=== PATIENT | male | born 1965 | race Caucasian/White ===

== ENCOUNTER 2017-01-30 20:29 | Emergency (ER) | payer OTHER ==
[2017-01-30 20:42] VITALS: BP 118/78
--- NOTE | 2017-01-30 20:51 | UC ---
Hand/Wrist HPI - HPI Summary HPI Summary: complaint of left wrist pain that started 2 weeks ago was working with his hand and felt his wrist pop then while he was working he hit himself in the hand with a hammer pain is constant and has worsened today pain radiates from wrist into thumb movement increases pain resting reduces pain hasn't taken any medications for pain - History Of Current Complaint Chief Complaint: UCUpperExtremity Stated Complaint: LEFT WRIST PAIN Time Seen by Provider: 01/30/17 20:44 Hx Obtained From: Patient - Allergies/Home Medications Allergies/Adverse Reactions: Allergies Allergy/AdvReac Type Severity Reaction Status Date / Time antibiotic eye drop Allergy Swelling Uncoded 01/30/17 20:42 Home Medications: Home Medications NK [No Home Medications Reported] 01/30/17 [History Confirmed 01/30/17] PMH/Surg Hx/FS Hx/Imm Hx Previously Healthy: Yes - Surgical History Surgical History: Yes Surgery Procedure, Year, and Place: cardiac cath 03/2012 wnl per pt, L knee - Family History Known Family History: Negative: Cardiac Disease, Hypertension, Diabetes - Social History Occupation: Employed Full-time Lives: With Family Alcohol Use: None Alcohol Amount: quit 5 years ago Substance Use Type: None Smoking Status (MU): Never Smoked Tobacco Type: Cigarettes Household Exposure Type: Cigarettes - Immunization History Most Recent Influenza Vaccination: no Most Recent Tetanus Shot: 02/2014 Review of Systems Constitutional: Negative Skin: Negative Eyes: Negative ENT: Negative Respiratory: Negative Cardiovascular: Negative Gastrointestinal: Negative Genitourinary: Negative Motor: Negative Neurovascular: Negative Musculoskeletal: Other: - left hand and wrist pain Neurological: Negative Psychological: Negative All Other Systems Reviewed And Are Negative: Yes Physical Exam Triage Information Reviewed: Yes Appearance: No Pain Distress, Well-Nourished Vital Signs: Initial Vital Signs Temp 99.1 F 01/30/17 20:32 Pulse 85 01/30/17 20:32 Resp 18 01/30/17 20:32 BP 118/78 01/30/17 20:32 Vital Signs Reviewed: Yes Eyes: Positive: Conjunctiva Clear ENT: Positive: Pharynx normal, TMs normal Neck: Positive: No Lymphadenopathy Respiratory: Positive: Lungs clear, Normal breath sounds, No respiratory distress, No accessory muscle use Cardiovascular: Positive: RRR, No Murmur, Pulses Normal Abdominal Exam: Normal Musculoskeletal: Positive: Other: - LUE- tenderness in 2nd metacarpal, anatomical snuff box tenderness; Full ROM in DIP, PIP, MCP, & carpal joints & with supination and pronation. Neurological: Positive: Alert Psychological Exam: Normal Skin Exam: Normal Hand/Wrist Course/Dx - Course Course Of Treatment: wrist x-ray shows no fracture. d/t schaphoid tenderness will send to ortho for further evaluation and treatment - Differential Dx/Diagnosis Differential Diagnosis/HQI/PQRI: Fracture, Sprain, Strain Provider Diagnoses: left wrist fracture Discharge - Discharge Plan Condition: Stable Disposition: HOME Patient Education Materials: Wrist Fracture in Adults (ED) Referrals: KATHIA Sam [Medical Doctor] - Haim Orozco MD [Medical Doctor] - Additional Instructions: Please call claim benefit specialist for an appointment. They will evaluate and determine your treatment. It is important to wear splint until you are seen by orthopedics. Take ibuprofen or aleve to control pain and reduce inflammation. Please review your discharge instructions. If your symptoms worsen call claim benefit specialist or return to urgent care.
[2017-01-30] MEDS ORDERED: Ibuprofen TAB* 400 MG PO ONE (20:52)
--- NOTE | 2017-01-30 21:15 | RAD ---
INDICATION: Atraumatic pain base of thumb for 2 weeks COMPARISON: None TECHNIQUE: AP, lateral, navicular and oblique views were obtained. FINDINGS: The bony structures, joint spaces, and soft tissues are normal for age. IMPRESSION: NO ACUTE FRACTURE. IF THERE IS PERSISTENT PAIN SUGGEST FOLLOW-UP IN 7-10 DAYS.
== END 2017-01-30 21:45 | disposition home or self-care (01) ==
LOC: UCCORT 20:29
DX: S69.92XA Unspecified injury of left wrist, hand and finger(s), initial encounter (principal); W22.8XXA Striking against or struck by other objects, initial encounter; Y93.89 Activity, other specified; Y92.9 Unspecified place or not applicable; Y99.0 Civilian activity done for income or pay; Z77.22 Contact with and (suspected) exposure to environmental tobacco smoke (acute) (chronic)
CPT/HCPCS: 99213; A9270-GY; G0463

== ENCOUNTER 2017-03-17 07:17 | Emergency (ER) | payer OTHER ==
[2017-03-17 07:32] VITALS: BP 116/81
--- NOTE | 2017-03-17 08:04 | UC ---
Skin Complaint HPI - HPI Summary HPI Summary: painful rash x 5 days located on lower abdominal wall, back, face and neck + exposure to poison gayatri - History of Current Complaint Chief Complaint: UCRash Time Seen by Provider: 03/17/17 07:55 Stated Complaint: SKIN COMPLAINT Hx Obtained From: Patient Onset/Duration: Gradual Onset, Lasting Days - 5, Still Present Timing: Constant Onset Severity: Moderate Current Severity: Moderate Location: Diffuse Character: Swelling, Pruritus, Pain, Redness, Raised, Painful Aggravating: Touch Alleviating: Nothing Associated Signs & Symptoms: Positive: Rash. Negative: Fever, Chills, Cough, Wheezing, Chest Pain, Throat Tightening - Allergy/Home Medications Allergies/Adverse Reactions: Allergies Allergy/AdvReac Type Severity Reaction Status Date / Time antibiotic eye drop Allergy Swelling Uncoded 03/17/17 07:32 Home Medications: Home Medications Cortisone 10 Topical 1 applic TOPICAL QID PRN 03/17/17 [History] Review of Systems Constitutional: Negative Skin: Rash Eyes: Negative ENT: Negative Respiratory: Negative Is Patient Immunocompromised?: No All Other Systems Reviewed And Are Negative: Yes PMH/Surg Hx/FS Hx/Imm Hx Previously Healthy: Yes - Surgical History Surgical History: Yes Surgery Procedure, Year, and Place: cardiac cath 03/2012 wnl per pt, b/l knees - Family History Known Family History: Negative: Cardiac Disease, Hypertension, Diabetes - Social History Alcohol Use: None Alcohol Amount: quit 5 years ago Substance Use Type: None Smoking Status (MU): Never Smoked Tobacco Type: Cigarettes Household Exposure Type: Cigarettes - Immunization History Most Recent Influenza Vaccination: no Most Recent Tetanus Shot: 02/2014 Physical Exam Triage Information Reviewed: Yes Appearance: Well-Appearing, No Pain Distress, Well-Nourished Vital Signs: Initial Vital Signs Temp 97.5 F 03/17/17 07:25 Pulse 77 03/17/17 07:25 Resp 18 03/17/17 07:25 BP 116/81 03/17/17 07:25 Vital Signs Reviewed: Yes Eyes: Positive: Conjunctiva Clear ENT: Positive: Normal ENT inspection, Hearing grossly normal, Pharynx normal Neck exam: Normal Neck: Positive: Supple, Nontender Respiratory: Positive: Chest non-tender, Lungs clear, Normal breath sounds Cardiovascular: Positive: RRR, No Murmur, Pulses Normal Skin: Positive: rashes - multiple maculopapulary rash on the face, lower abd, back and right arm Course/Dx - Diagnoses Provider Diagnoses: poison gayatri Discharge - Discharge Plan Condition: Stable Disposition: HOME Prescriptions: Triamcinolone 0.1% CREAM(NF) [Kenalog Cream 0.1%(NF)] 1 applic TOPICAL BID #30 gm predniSONE TAB* [Deltasone TAB*] 40 mg PO DAILY #10 tab Patient Education Materials: Poison Gayatri (ED) Referrals: Kandace Luna MD [Primary Care Provider] - If Needed
== END 2017-03-17 08:11 | disposition home or self-care (01) ==
LOC: UCCORT 07:17
DX: L23.7 Allergic contact dermatitis due to plants, except food (principal); Z77.22 Contact with and (suspected) exposure to environmental tobacco smoke (acute) (chronic)
CPT/HCPCS: 99212; G0463

== ENCOUNTER 2018-03-11 16:52 | Emergency (ER) | payer OTHER ==
[2018-03-11 18:30] VITALS: BP 128/72
--- NOTE | 2018-03-11 19:07 | UC ---
Skin Complaint HPI - HPI Summary HPI Summary: Patient states that he fell and scraped his left elbow 2 weeks ago causing an abrasion. He notes that the area healed. About 2-3 days ago he fell and pulled off a small piece of scab. He been applying some Neosporin and states that it healed up pretty good; however, he has since developed some intensive itching and a little bit of redness at the site. He denies any associated joint pain, fever and foreign body sensation. He states his tetanus shot is up to date-within 10 years. - History of Current Complaint Chief Complaint: UCSkin Time Seen by Provider: 03/11/18 19:00 Stated Complaint: LEFT ELBOW WOUND Hx Obtained From: Patient Pain Intensity: 0 Aggravating Factor(s): Nothing Alleviating Factor(s): Nothing Associated Signs & Symptoms: Positive: Rash. Negative: Red Streaks, Joint Swelling - Allergy/Home Medications Allergies/Adverse Reactions: Allergies Allergy/AdvReac Type Severity Reaction Status Date / Time antibiotic eye drop Allergy Swelling Uncoded 03/11/18 18:31 Review of Systems Constitutional: Negative Skin: Rash Eyes: Negative ENT: Negative Respiratory: Negative Cardiovascular: Negative Gastrointestinal: Negative Genitourinary: Negative Motor: Negative Neurovascular: Negative Musculoskeletal: Negative Neurological: Negative Psychological: Negative Is Patient Immunocompromised?: No All Other Systems Reviewed And Are Negative: Yes PMH/Surg Hx/FS Hx/Imm Hx Previously Healthy: Yes - Surgical History Surgical History: Yes Surgery Procedure, Year, and Place: cardiac cath 03/2012 wnl per pt, b/l knees - Family History Known Family History: Negative: Cardiac Disease, Hypertension, Diabetes - Social History Occupation: Employed Full-time Alcohol Use: None Alcohol Amount: quit 5 years ago Substance Use Type: None Smoking Status (MU): Never Smoked Tobacco Type: Cigarettes Household Exposure Type: Cigarettes - Immunization History Most Recent Influenza Vaccination: no Most Recent Tetanus Shot: 02/2014 Vaccination Up to Date: Yes Physical Exam Triage Information Reviewed: Yes Appearance: Well-Appearing Vital Signs: Initial Vital Signs Temp 98.4 F 03/11/18 18:26 Pulse 79 03/11/18 18:26 Resp 16 03/11/18 18:26 BP 128/72 03/11/18 18:26 Pulse Ox 98 03/11/18 18:26 Vital Signs Reviewed: Yes Eyes: Positive: Conjunctiva Clear ENT: Positive: Normal ENT inspection Neck: Positive: Supple, Nontender, No Lymphadenopathy Respiratory: Positive: Lungs clear, Normal breath sounds Cardiovascular: Positive: RRR, No Murmur Abdomen Description: Positive: Nontender, No Organomegaly, Soft Bowel Sounds: Positive: Present Musculoskeletal: Positive: ROM Intact Neurological: Positive: Alert Psychological: Positive: Age Appropriate Behavior Skin Exam: Normal, Other - LUE: There is an abrasion over the forearm. The wound appears to be healed. There is a mild surrounding, blotchy erythematous discoloration. There is no gross bony deformity. There is no joint pain with palpation or with active and passive range of motion. There is no erythematous streaking and no epitrochlear adenopathy. Course/Dx - Course Course Of Treatment: Given there is concern for secondary infection I did suggest x-ray however patient is refusing citing he has no concern for foreign body. It is possible that he is having a reaction to the Neosporin thus was advised to discontinue its use. I'm going to cover him with an oral antibiotic for possibility of secondary infection. I'm also going to cover him with a topical steroid twice daily only for 5 days in the event that he is having a reaction to the Neosporin and to the type of dressing he had been using. Need for close follow-up stressed at time of visit. - Diagnoses Provider Diagnoses: Abrasion L elbow. Erythema L elbow, infection vs contact dermatitis Discharge - Sign-Out/Discharge Documenting (check all that apply): Patient Departure All imaging exams completed and their final reports reviewed: No Studies - Discharge Plan Condition: Stable Disposition: HOME Prescriptions: Cephalexin CAP* [Keflex CAP*] 500 mg PO TID 10 Days #30 cap Triamcinolone 0.1% CREAM (NF) [Kenalog 0.1% Cream (NF)] 1 applic .SEE ORDER BID 5 Days #1 applic Patient Education Materials: Cellulitis (DC) Referrals: Kandace Luna MD [Primary Care Provider] - 3 Days Additional Instructions: STOP THE NEOSPORIN - Billing Disposition and Condition Condition: STABLE Disposition: Home
== END 2018-03-11 19:15 | disposition home or self-care (01) ==
LOC: UCCORT 16:52
DX: S50.312A Abrasion of left elbow, initial encounter (principal); W19.XXXA Unspecified fall, initial encounter; Y93.9 Activity, unspecified; Y92.9 Unspecified place or not applicable; L53.9 Erythematous condition, unspecified; Z88.1 Allergy status to other antibiotic agents
CPT/HCPCS: 99212; G0463

== ENCOUNTER 2019-01-18 18:20 | Emergency (ER) | payer OTHER ==
--- OUTSIDE RECORDS SUMMARY | 2019-01-18 19:11 | XMS REPORT | Continuity of Care Document ---
:1965 External Reference #:[id number] Author Name Kandace Luna MD Address [address] [place] [address] Care Team Providers Name Role Phone Kandace Luna MD Care Team Information Cafeteria Supervisor Unavailable Kandace Luna MD Primary Care Physician Unavailable Payers Date Identification Numbers Payment Provider Subscriber Policy Number: [id number] [employer] Ashok Aguirre PayID: [id number] [address] [place] [address] Problems Active Problems Provider Date Benign prostatic hyperplasia with lower urinary Kandace Luna MD Onset: tract symptoms Screening for malignant neoplasm of colon Berny Mar MD Onset: 06/04/2017 Family History Date Family Member(s) Observation Comments Onset: Mother Diabetes (06/25/2016) Mother Cancer First Brother Stroke First Sister due to () Hepatocellular Carcinoma First Sister Liver Cancer age mid 50's Social History Type Date Description Comments Sex Unknown Marital Status Patient is Lives With Female Partner Home Environment Lives With girl friend Diet Patient follows no dietary restrictions Occupation [employer] Work Status Currently Working ADL's/IADL's Independent with all ADL's Tobacco Use Start: Unknown Never Smoked Cigarettes Smokeless Tobacco Never Used Smokeless Tobacco ETOH Use Has consumed alcohol in the past Tobacco Use Start: Unknown Patient denies history of smoking Recreational Drug Use Former Drug User Smoking Status Reviewed: 12/25/18 Patient denies history of smoking Allergies, Adverse Reactions, Alerts Active Allergies Reaction Severity Comments Date Naproxen GI Upset, Rushing, Depression 03/22/2010 Maxitrol ITCHY/IRRITATION 10/16/2016 Medications Active Medications SIG Qnty Indications Ordering Date Provider Bacitracin Zinc apply to 14.170gm Kandace Luna, 12/23/2018 affected area 500Unit/GM Ointment left knee twice a day Levothyroxine Sodium 1 by mouth every 30tabs E03.9 Kandace Luna, 2018 day 25mcg Tablets History Medications Dutasteride 1 by mouth every 90caps N40.1 Arnold Gibson, 07/30/2018 - 0.5mg day M.D. 12/23/2018 Capsules No Active Unknown 06/24/2018 - Medications 07/30/2018 Golytely drink half the 4000ml Z12.11 Berny Mar MD 06/04/2017 - 236gm evening before 06/24/2018 Solution Rec and half the morning of the procedure (1 cup every 10') Dulcolax 4 tablets taken a 4tabs Z12.11 Berny Mar MD 06/04/2017 - 5mg Tablets 8pm the day 06/24/2018 DR before the procedure Magnesium Citrate 1 bottle po x one 296ml Z12.11 Berny Mar MD 06/04/2017 - as directed 06/24/2018 1.745GM/30ML Solution Fluticasone spray 1-2 sprays 16gm JeremyKandace, 10/16/2016 - Propionate in each nostril Unknown 50mcg/Act once daily Suspension Zyrtec Allergy 1 tab by mouth 30tabs Kandace Luna, 10/16/2016 - 10mg every night prn Unknown Tablets No Active Unknown 06/25/2016 - Medications 10/16/2016 No Active Unknown 04/14/2013 - Medications 06/06/2016 Clinoril 1 po bid 40tabs Gaurang Tarango 02/22/2010 - 200mg MD Moira, FACS Unknown Tablets Tramadol HCL 1 po as needed Unknown - 50mg for pain Unknown Tablets Flomax 1 by mouth every Unknown - 0.4mg Capsules day Unknown Neomycin/Polymyxin/D Apply Ointment To Unknown - examethasone The Right Eye Two 10/16/2016 Times A Day For 1 3.5-16213-0.1 Day Then AT Bedt Ointment Tramadol HCL prn Unknown - 50mg Unknown Tablets Immunizations CPT Code Status Date Vaccine Lot # [id number] Given 07/20/2018 Influenza Virus Vaccine, Quadrivalent, 36 Mos+, .5ML Vital Signs Date Vital Result Comment 12/25/2018 9:09am BP Systolic 126 mmHg BP Diastolic 66 mmHg Body Temperature 97.2 F Heart Rate 66 /min Respiratory Rate 18 /min Height 70 inches 5'10" Weight 213.00 lb BMI (Body Mass Index) 30.6 kg/m2 BSA (Body Surface Area) 2.14 m2 [place] body weight in kilograms 75 kg O2 % BldC Oximetry 95 % 12/23/2018 9:44am BP Systolic Sitting Left Arm 120 mmHg BP Diastolic Sitting Left Arm 76 mmHg Body Temperature 96.6 F Heart Rate 72 /min Respiratory Rate 18 /min Height 70 inches 5'10" Weight 212.00 lb BMI (Body Mass Index) 30.4 kg/m2 BSA (Body Surface Area) 2.14 m2 [place] body weight in kilograms 75 kg O2 % BldC Oximetry 96 % Ra 07/30/2018 1:07pm BP Systolic 149 mmHg BP Diastolic 88 mmHg Body Temperature 97.5 F Heart Rate 61 /min Respiratory Rate 16 /min Height 70 inches 5'10" Weight 213.50 lb BMI (Body Mass Index) 30.6 kg/m2 BSA (Body Surface Area) 2.15 m2 [place] body weight in kilograms 75 kg O2 % BldC Oximetry 97 % Pain Level 0 06/24/2018 8:28am BP Systolic Sitting Right Arm 124 mmHg BP Diastolic Sitting Right Arm 80 mmHg Body Temperature 96.9 F Heart Rate 66 /min reg Respiratory Rate 18 /min Height 70 inches 5'10" Weight 217.00 lb BMI (Body Mass Index) 31.1 kg/m2 BSA (Body Surface Area) 2.16 m2 [place] body weight in kilograms 75 kg O2 % BldC Oximetry 97 % ra 06/20/2017 9:38am BP Systolic Sitting Right Arm 112 mmHg BP Diastolic Sitting Right Arm 67 mmHg Heart Rate 63 /min Respiratory Rate 12 /min Height 70 inches 5'10" Weight 215.00 lb BMI (Body Mass Index) 30.8 kg/m2 BSA (Body Surface Area) 2.15 m2 [place] body weight in kilograms 75 kg 06/04/2017 9:07am BP Systolic Sitting Left Arm 110 mmHg BP Diastolic Sitting Left Arm 82 mmHg Heart Rate 66 /min Respiratory Rate 16 /min Height 70 inches 5'10" Weight 218.00 lb BMI (Body Mass Index) 31.3 kg/m2 BSA (Body Surface Area) 2.17 m2 [place] body weight in kilograms 75 kg 04/18/2017 9:07am BP Systolic Sitting Right Arm 111 mmHg BP Diastolic Sitting Right Arm 72 mmHg Heart Rate 66 /min Respiratory Rate 18 /min Height 70 inches 5'10" Weight 213.00 lb BMI (Body Mass Index) 30.6 kg/m2 BSA (Body Surface Area) 2.14 m2 [place] body weight in kilograms 75 kg O2 % BldC Oximetry 97 % ra 10/16/2016 8:26am BP Systolic 114 mmHg BP Diastolic 80 mmHg Body Temperature 95.6 F Heart Rate 72 /min Respiratory Rate 20 /min Height 70 inches 5'10" Weight 225.00 lb with boots BMI (Body Mass Index) 32.3 kg/m2 BSA (Body Surface Area) 2.19 m2 O2 % BldC Oximetry 95 % 06/25/2016 9:19am BP Systolic 110 mmHg BP Diastolic 70 mmHg Heart Rate 64 /min irreg Height 70 inches 5'10" Weight 222.00 lb BMI (Body Mass Index) 31.9 kg/m2 BSA (Body Surface Area) 2.18 m2 06/21/2016 8:33am BP Systolic Sitting Left Arm 127 mmHg BP Diastolic Sitting Left Arm 74 mmHg Heart Rate 68 /min Height 70 inches 5'10" Weight 223.00 lb BMI (Body Mass Index) 32.0 kg/m2 BSA (Body Surface Area) 2.19 m2 [place] body weight in kilograms 75 kg 06/10/2016 11:21am BP Systolic 106 mmHg BP Diastolic 76 mmHg Heart Rate 60 /min Respiratory Rate 16 /min Weight 202.00 lb 04/14/2013 3:18pm BP Systolic Sitting Right Arm 110 mmHg BP Diastolic Sitting Right Arm 76 mmHg Heart Rate 65 /min Respiratory Rate 16 /min Height 69 inches 5'9" Weight 202.00 lb BMI (Body Mass Index) 29.8 kg/m2 BSA (Body Surface Area) 2.07 m2 02/22/2010 9:02am Height 69 inches 5'9" Weight 206.00 lb BMI (Body Mass Index) 30.4 kg/m2 Results Test Date Facility Test Result H/L Range Note Serum or plasma N2N/CCD Import Serum or plasma 8.6 8.5-10.1 calcium 9 calcium measurement measurement (mass/volume) (mass/volume) Serum or plasma N2N/CCD Import Serum or plasma 5 Low 8-16 anion gap 9 anion gap Co2 SerPl-sCnc N2N/CCD Import Co2 SerPl-sCnc 26 21-32 9 Serum or plasma N2N/CCD Import Serum or plasma 110 High 98-107 chloride 9 chloride measurement measurement Serum or plasma N2N/CCD Import Serum or plasma 3.9 3.5-5.1 potassium 9 potassium measurement measurement Sodium N2N/CCD Import Sodium 141 136-145 SerPl-sCnc 9 SerPl-sCnc Serum or plasma N2N/CCD Import Serum or plasma 16.3 urea 9 urea nitrogen/creatin nitrogen/creatin ine mass rati ine mass ratio GFR/Bsa N2N/CCD Import GFR/Bsa >60 >60 pred.black SerPl 9 pred.black SerPl MDRD-ArVRat MDRD-ArVRat Estimated N2N/CCD Import Estimated >60 >60 glomerular 9 glomerular filtration rate filtration rate (GFR) non-Afr (GFR) non- Serum or plasma N2N/CCD Import Serum or plasma 1.1 0.6-1.3 creatinine 9 creatinine measurement measurement (mass/volum (mass/volume) Serum or plasma N2N/CCD Import Serum or plasma 18 7-18 urea nitrogen 9 urea nitrogen measurement measurement (mass/vo (mass/volume) Serum or plasma N2N/CCD Import Serum or plasma 95 74-106 glucose 9 glucose measurement measurement (mass/volume) (mass/volume) Laboratory test PSYCHIATRIC Thyroid Stim 7.10 uIU/mL High 0.30-4.20 1 finding 9 [address] [facility] [place] [address] [phone] Free T4 0.80 ng/dL Normal 0.76-1.46 Basic Metabolic Panel 12/17/2018 PSYCHIATRIC Glucose 95 mg/dL Normal 74-106 [address] [place] [address] [phone] BUN 18 mg/dL Normal 7-18 Creatinine 1.1 mg/dL Normal 0.6-1.3 Glom Filtration Rate, Estimate >60 mL/min >60 If >60 mL/min >60 2 BUN/Creat 16.3 ratio Sodium 141 mmol/L Normal 136-145 Potassium 3.9 mmol/L Normal 3.5-5.1 Chloride 110 mmol/L High 98-107 Carbon Dioxide 26 mmol/L Normal 21-32 Anion Gap 5 mEq/L Low 8-16 Calcium 8.6 mg/dL Normal 8.5-10.1 Laboratory test 08/17/2018 PSYCHIATRIC Prostate 3.04 < 4.0 3, [address] Specific ng/[place] [address] Antigen [phone] Comprehensive 06/22/2018 PSYCHIATRIC Glucose 100 mg/dL Normal 74-106 5 Metabolic Panel [address] [place], [place] [id number] [phone] BUN 14 mg/dL Normal 7-18 Creatinine 1.3 mg/dL Normal 0.6-1.3 Glom Filtration Rate, Estimate >60 mL/min >60 If >60 mL/min >60 6 BUN/Creat 10.7 ratio Sodium 141 mmol/L Normal 136-145 Potassium 4.3 mmol/L Normal 3.5-5.1 Chloride 107 mmol/L Normal 98-107 Carbon Dioxide 29 mmol/L Normal 21-32 Anion Gap 5 mEq/L Low 8-16 Calcium 8.3 mg/dL Low 8.5-10.1 Total Protein 6.9 g/dL Normal 6.4-8.2 Albumin 3.3 g/dL Low 3.4-5.0 Globulin 3.6 g/dL Normal 1.9-4.3 Alb/Glob 0.9 ratio Bilirubin,Total 0.6 mg/dL Normal 0.2-1.0 Sgot/Ast 14 U/L Low 15-37 7 SGPT/Alt 32 U/L Normal 12-78 Alkaline Phosphatase 71 U/L Normal 45-117 CBS W/Automated 06/22/2018 PSYCHIATRIC White Blood 5.4 K/uL Normal 3.4-10.[address] [place] [address] [phone] Red Blood Count 5.00 M/uL Normal 4.20-5.80 Hemoglobin 16.6 gm/dL Normal 12.8-17.0 Hematocrit 46.5 % Normal 38.0-48.0 Mean Cell Volume 93.0 fl Normal 80.0-96.0 Mean Corpuscular HGB 33.2 pg High 27.0-33.0 Mean Corpuscular HGB Conc 35.7 g/dL Normal 31.7-36.0 Platelet Count 212 K/uL Normal 155-360 Red Cell Distri Width SD 43.5 fl Normal 36-51 Red Cell Distri Width %CV 13.1 % Normal 11.6-15.8 Mean Platelet Volume 9.9 fL Normal 6.6-10.6 Neut% 62.8 % Normal 33.0-73.0 Lymph % 24.6 % Normal 20.0-42.0 Catron % 8.3 % Normal 0.0-10.0 Eo% 3.7 % Normal 0.0-6.6 Bas% 0.6 % Normal 0.0-1.1 Neut# 3.42 K/uL Normal 1.8-7.0 Lymph # 1.34 K/uL Normal 1.0-4.0 Catron # 0.45 K/uL Normal 0.0-0.8 Eos # 0.20 K/uL Normal 0.0-0.5 Baso # 0.03 K/uL Normal 0.0-0.1 Laboratory test 06/22/2018 PSYCHIATRIC Thyroid Stim 8.06 uIU/mL High 0.30-4.[address] Hormone [place], [place] [id number] [phone] Free T4 0.81 ng/dL Normal 0.76-1.46 LDL Cholesterol Profile 06/22/2018 PSYCHIATRIC Cholesterol 192 mg/dL <[address] [place], [place] [id number] [phone] Triglycerides 145 mg/dL <150 9 HDL Cholesterol 56 mg/dL >40 10 LDL-Cholesterol 107 mg/dL < 100 11 230 Ua Routine 08/07/2017 N2N/CCD Import Ua Bilirubin Negative Ua Blood Negative Ua Clarity Clear Ua Color Yellow Ua Glucose Negative Ua Ketones Negative Ua Leuko Negative Ua Nitrite Negative Ua PH 5.0 1 5.0-7.5 Ua Protein Negative Ua Specific [place] 1.010 1 1.003-1.030 Ua Urobilinogen 0.2 E.U./dL 0.0-1.0 Laboratory test 07/24/2017 N2N/CCD Import Total Psa Only 1.52 ng/mL 0.00 -4.00 finding Laboratory test 06/03/2017 PSYCHIATRIC Thyroid Stim 6.54 uIU/mL High 0.30-4.20 [address] [place] [address] [phone] Free T4 0.96 ng/dL Normal 0.76-1.46 Thyroid 06/03/2017 PSYCHIATRIC Thyroglobulin < 1.0 0.0-0.[address] Antibody IU/[place] [address] [phone] Thyroid Peroxidase Antibodies 10 IU/mL 0-34 14 CBS W/Automated 06/03/2017 PSYCHIATRIC White Blood 6.1 K/uL Normal 3.4-10.[address] [place] [address] [phone] Red Blood Count 4.93 M/uL Normal 4.20-5.80 Hemoglobin 16.1 gm/dL Normal 12.8-17.0 Hematocrit 45.3 % Normal 38.0-48.0 Mean Cell Volume 91.9 fl Normal 80.0-96.0 Mean Corpuscular HGB 32.7 pg Normal 27.0-33.0 Mean Corpuscular HGB Conc 35.5 g/dL Normal 31.7-36.0 Platelet Count 203 K/uL Normal 150-400 Red Cell Distri Width SD 43.5 fl Normal 36-51 Red Cell Distri Width %CV 13.1 % Normal 11.6-15.8 Mean Platelet Volume 10.3 fL Normal 6.6-10.6 Neut% 63.4 % Normal 33.0-73.0 Lymph % 19.6 % Low 20.0-42.0 Catron % 11.7 % High 0.0-10.0 Eo% 4.8 % Normal 0.0-6.6 Bas% 0.5 % Normal 0.0-1.1 Neut# 3.84 K/uL Normal 1.8-7.0 Lymph # 1.19 K/uL Normal 1.0-4.0 Catron # 0.71 K/uL Normal 0.0-0.8 Eos # 0.29 K/uL Normal 0.0-0.5 Baso # 0.03 K/uL Normal 0.0-0.1 Comprehensive 06/03/2017 PSYCHIATRIC Glucose 102 mg/dL Normal 74-106 Metabolic Panel [address] [place], [place] [id number] [phone] BUN 14 mg/dL Normal 7-18 Creatinine 1.2 mg/dL Normal 0.6-1.3 Glom Filtration Rate, Estimate >60 mL/min >60 If >60 mL/min >60 15 BUN/Creat 11.6 ratio Sodium 141 mmol/L Normal 136-145 Potassium 4.2 mmol/L Normal 3.5-5.1 Chloride 108 mmol/L High 98-107 Carbon Dioxide 27 mmol/L Normal 21-32 Anion Gap 6 mEq/L Low 8-16 Calcium 8.4 mg/dL Low 8.5-10.1 Total Protein 7.0 g/dL Normal 6.4-8.2 Albumin 3.3 g/dL Low 3.4-5.0 Globulin 3.7 g/dL Normal 1.9-4.3 Alb/Glob 0.9 ratio Bilirubin,Total 0.6 mg/dL Normal 0.2-1.0 Sgot/Ast 29 U/L Normal 15-37 SGPT/Alt 48 U/L Normal 12-78 Alkaline Phosphatase 82 U/L Normal 45-117 LDL Cholesterol Profile 06/03/2017 PSYCHIATRIC Cholesterol 190 mg/dL <200 16 [address] [place] [address] [phone] Triglycerides 97 mg/dL <150 17 HDL Cholesterol 62 mg/dL >40 18 LDL-Cholesterol 109 mg/dL < 100 19 Laboratory test 04/11/2017 PSYCHIATRIC Thyroid Stim 4.82 High 0.30-4.20 [address] Hormone uIU/[place] [address] [phone] Free T4 0.98 ng/dL Normal 0.76-1.46 Hepatitis C 10/16/2016 PSYCHIATRIC Hepatitis C Nonreactive Nonreactive [address] [place] [address] [phone] Signal/Cutoff ratio < 0.02 <0.80 22 Laboratory test 10/16/2016 PSYCHIATRIC Thyroid Stim 4.39 uIU/mL High 0.30-4.[address] [place] [place] [address] [phone] Free T4 0.90 ng/dL Normal 0.76-1.46 HIV Screen 4TH Gen Reflex Non Reactive Non Reactive 23 Laboratory test 06/25/2016 PSYCHIATRIC Thyroid Stim 6.73 High 0.30-4.20 24 finding [address] H[address] uIU/[place] [address] [phone] Free T4 0.96 ng/dL Normal 0.76-1.46 Comprehensive 06/11/2016 PSYCHIATRIC Glucose 96 mg/dL Normal 74-106 25 Metabolic Panel [address] [place] [address] [phone] BUN 14 mg/dL Normal 7-18 Creatinine 1.2 mg/dL Normal 0.6-1.3 Glom Filtration Rate, Estimate >60 mL/min Normal >60 If >60 mL/min Normal >60 26 BUN/Creat 11.6 ratio Normal Sodium 141 mmol/L Normal 136-145 Potassium 4.0 mmol/L Normal 3.5-5.1 Chloride 108 mmol/L High 98-107 Carbon Dioxide 27 mmol/L Normal 21-32 Anion Gap 6 mEq/L Low 8-16 Calcium 8.1 mg/dL Low 8.5-10.1 Total Protein 6.5 g/dL Normal 6.4-8.2 Albumin 3.3 g/dL Low 3.4-5.0 Globulin 3.2 g/dL Normal 1.9-4.3 Alb/Glob 1.0 ratio Normal Bilirubin,Total 0.6 mg/dL Normal 0.2-1.0 Sgot/Ast 19 U/L Normal 15-37 SGPT/Alt 30 U/L Normal 12-78 Alkaline Phosphatase 61 U/L Normal 45-117 LDL Cholesterol 06/11/2016 PSYCHIATRIC Cholesterol 195 mg/dL Normal <200 27 Profile [address] [place] [address] [phone] Triglycerides 139 mg/dL Normal <150 28 HDL Cholesterol 53 mg/dL Normal >40 29 LDL-Cholesterol 114 mg/dL Normal < 100 30 Laboratory test 06/11/2016 PSYCHIATRIC Magnesium 1.9 mg/dL Normal 1.8-2.4 finding [address] [place] [address] [phone] Thyroid Stim Hormone 7.73 uIU/mL High 0.30-4.20 NT-proBNP 109.0 pg/mL Normal <125 Prostate Specific Antigen 1.22 ng/mL Normal < 4.0 31 CBS W/Automated 06/11/2016 PSYCHIATRIC White Blood 5.1 K/uL Normal 3.4-10.[address] [place] [address] [phone] Red Blood Count 4.95 M/uL Normal 4.20-5.80 Hemoglobin 16.1 gm/dL Normal 12.8-17.0 Hematocrit 45.9 % Normal 38.0-48.0 Mean Cell Volume 92.7 fl Normal 80.0-96.0 Mean Corpuscular HGB 32.5 pg Normal 27.0-33.0 Mean Corpuscular HGB Conc 35.1 g/dL Normal 31.7-36.0 Platelet Count 202 K/uL Normal 150-400 Red Cell Distri Width SD 43.8 fl Normal 36-51 Red Cell Distri Width %CV 13.1 % Normal 11.6-15.8 Mean Platelet Volume 10.6 fL Normal 6.6-10.6 Neut% 52.7 % Normal 33.0-73.0 Lymph % 31.0 % Normal 17.0-56.0 Catron % 11.7 % High 0.0-10.0 Eo% 3.6 % Normal 0.0-5.0 Bas% 1.0 % Normal 0.1-1.0 Neut# 2.67 K/uL Normal 1.8-7.0 Lymph # 1.57 K/uL Low 1.8-7.0 Catron # 0.59 K/uL Normal 0.0-0.8 Eos # 0.18 K/uL Normal 0.0-0.5 Baso # 0.05 K/uL Low 0.1-0.2 Laboratory test finding 07/04/2009 PSYCHIATRIC Lipoma See Note 32 [address] [place] [address] [phone] Basic Metabolic Panel 06/28/2009 PSYCHIATRIC Glucose 89 mg/dL 76-[address] [place] [address] [phone] BUN 14 mg/dL 5-23 Estimated GFR Panel Creatinine 1.2 mg/dL 0.5-1.4 Glom Filtration Rate, Estimate >60 mL/min >60 If >60 mL/min >60 34 BUN/Creat 11.6 Sodium 135 mEq/L Low 136-145 Potassium 3.9 mEq/L 3.5-5.1 Chloride 100 mEq/L 98-107 Carbon Dioxide 28 mEq/L 21-32 Anion Gap 11 mEq/L 8-16 Calcium 8.4 mg/dL Low 8.5-10.1 CBC 06/28/2009 PSYCHIATRIC White Blood Count 5.4 K/uL 3.4-10.5 [address] [place] [address] [phone] Red Blood Count 5.02 M/uL 4.20-5.80 Hemoglobin 16.2 gm/dL 12.8-17.0 Hematocrit 45.4 % 38.0-48.0 Mean Cell Volume 90.4 fl 80.0-96.0 Mean Corpuscular HGB 32.3 pg 27.0-33.0 Mean Corpuscular HGB Conc 35.7 g/dL 31.7-36.0 Platelet Count 241 K/uL 150-400 Red Cell Distri Width %CV 12.7 % 11.6-15.8 Mean Platelet Volume 9.8 fL 6.6-10.6 35 Urine Screen 06/28/2009 PSYCHIATRIC Urine Color YELLOW Yellow [address] [place] [address] [phone] Urine Clarity CLEAR Clear Urine Glucose - Dipstick NEGATIVE mg/dL Negative Urine Bilirubin - Dipstick NEGATIVE Negative Urine Ketone NEGATIVE mg/dL Negative Urine Specific [place] 1.020 1.010-1.030 Urine Blood NEGATIVE Negative Urine PH 5.5 Low 6.5-7.5 Urine Protein - Dipstick NEGATIVE mg/dL Negative Urine Urobilinogen - Dipstick 0.2 E.U./dL 0.2-1.0 Urine Nitrite - Dipstick NEGATIVE Negative Urine Leuk Esterase NEGATIVE Negative 36 1 R94.6 2 Note: Persistent reduction for 3 months or more in an eGFR <60 mL/min/1.73 m2 defines CKD. Patients with eGFR values >/=60 mL/min/1.73 m2 may also have CKD if evidence of persistent proteinuria is present. The original MDRD equation for estimated GFR is not valid for patients less than 18 years of age. Additional information may be found at www.kdoqi.org. 3 N40.1 4 THIS ASSAY IS NOT INTENDED A CANCER SCREENING TEST The concentration of PSA in a given specimen, determined with assays from different manufacturers, can vary due to differences in assay methods and reagent specificity. Values obtained from different assay methods cannot be used interchangeably. Method: Siemens [place] Chemiluminescent immunoassay. 5 R94.6,N40.0,E03.9 6 Note: Persistent reduction for 3 months or more in an eGFR <60 mL/min/1.73 m2 defines CKD. Patients with eGFR values >/=60 mL/min/1.73 m2 may also have CKD if evidence of persistent proteinuria is present. The original MDRD equation for estimated GFR is not valid for patients less than 18 years of age. Additional information may be found at www.kdoqi.org. 7 Values below the stated reference ranges of AST and ALT can be seen in normal populations. Clinical correlation is suggested. 8 Reference Guidelines*: Desirable: ........... < 200 mg/dL Borderline High: ..... 200-239 mg/dL High: ................ >=240 mg/dL * The National Cholesterol Education Program (NCEP) 9 Reference Guidelines*: Normal: ............. < 150 mg/dL Borderline High: .... 150-199 mg/dL High: ............... 200-499 mg/dL Very High: .......... > 500 mg/dL * Source: National Cholesterol Education Program (NCEP) 10 Reference Guidelines*: Low HDL: ..... < 40 mg/dL Normal: ..... 40-60 mg/dL Desirable: ... > 60 mg/dL *The National Cholesterol Education Program(NCEP) 11 Reference Guidelines*: Optimal:........... <100 mg/dL Near Optimal....... 100-129 mg/dL Borderline High.... 130-159 mg/dL High............... 160-189 mg/dL Very High.......... >=190 mg/dL * Source: National Cholesterol Education Program (NCEP) 12 E03.9,E66.09 13 Thyroglobulin Antibody measured by Iveth Harleton Methodology 14 Performed at: - [facility] [address] [id number] [employer]er: Lashonda Yi MD, Phone: [phone] Note: Persistent reduction for 3 months or more in an eGFR <60 mL/min/1.73 m2 defines CKD. Patients with eGFR values >/=60 mL/min/1.73 m2 may also have CKD if evidence of persistent proteinuria is present. The original MDRD equation for estimated GFR is not valid for patients less than 18 years of age. Additional information may be found at www.kdoqi.org. 16 Reference Guidelines*: Desirable: ........... < 200 mg/dL Borderline High: ..... 200-239 mg/dL High: ................ >=240 mg/dL * The National Cholesterol Education Program (NCEP) 17 Reference Guidelines*: Normal: ............. < 150 mg/dL Borderline High: .... 150-199 mg/dL High: ............... 200-499 mg/dL Very High: .......... > 500 mg/dL * Source: National Cholesterol Education Program (NCEP) 18 Reference Guidelines*: Low HDL: ..... < 40 mg/dL Normal: ..... 40-60 mg/dL Desirable: ... > 60 mg/dL *The National Cholesterol Education Program(NCEP) 19 Reference Guidelines*: Optimal:........... <100 mg/dL Near Optimal....... 100-129 mg/dL Borderline High.... 130-159 mg/dL High............... 160-189 mg/dL Very High.......... >=190 mg/dL * Source: National Cholesterol Education Program (NCEP) 20 E03.9 R94.6 21 R06.02 E03.9 22 Antibodies to HCV not detected; does not exclude early acute HCV infection. 23 Performed at: - [facility] [id number] [employer]: Lashonda Yi MD, Phone: [phone] 24 E03.9 25 R06.2,N40.0 26 Note: Persistent reduction for 3 months or more in an eGFR <60 mL/min/1.73 m2 defines CKD. Patients with eGFR values >/=60 mL/min/1.73 m2 may also have CKD if evidence of persistent proteinuria is present. The original MDRD equation for estimated GFR is not valid for patients less than 18 years of age. Additional information may be found at www.kdoqi.org. 27 Reference Guidelines*: Desirable: ........... < 200 mg/dL Borderline High: ..... 200-239 mg/dL High: ................ >=240 mg/dL * The National Cholesterol Education Program (NCEP) 28 Reference Guidelines*: Normal: ............. < 150 mg/dL Borderline High: .... 150-199 mg/dL High: ............... 200-499 mg/dL Very High: .......... > 500 mg/dL * Source: National Cholesterol Education Program (NCEP) 29 Reference Guidelines*: Low HDL: ..... < 40 mg/dL Normal: ..... 40-60 mg/dL Desirable: ... > 60 mg/dL *The National Cholesterol Education Program(NCEP) 30 Reference Guidelines*: Optimal:........... <100 mg/dL Near Optimal....... 100-129 mg/dL Borderline High.... 130-159 mg/dL High............... 160-189 mg/dL Very High.......... >=190 mg/dL * Source: National Cholesterol Education Program (NCEP) 31 THIS ASSAY IS NOT INTENDED A CANCER SCREENING TEST The concentration of PSA in a given specimen, determined with assays from different manufacturers, can vary due to differences in assay methods and reagent specificity. Values obtained from different assay methods cannot be used interchangeably. Method: Siemens Dim[employer] [place] Chemiluminescent immunoassay. 32 OPERATION/PROCEDURE Repair bilateral inguinal hernia DIAGNOSIS: PARTS 1,2: "RIGHT & LEFT CORD LIPOMAS": MATURE ADIPOSE TISSUE. Js 1142 GROSS Part 1; Received in formalin additionally labeled "RIGHT CORD LIPOMA" is a 4.0 x 2.0 x 1.3 cm. piece of soft tissue. On cut surface there appears to be mature adipose tissue without evidence of hemorrhage nor necrosis. [employer] Sorter sections are submitted in block one. Part 2; Received in formalin additionally labeled "LEFT CORD LIPOMA" are two pieces of wong yellow soft tissue measuring 3.0 x 0.7 x 0.7 and 2.8 x 1.5 x 1.0 cm. On cut surface there appears to be mature adipose tissue without evidence of hemorrhage nor necrosis. [employer] Sorter sections are submitted in block two. Js MICROSCOPIC Parts 1,2: Sections reveal mature adipose tissue with delicate capillaries. PRE OPERATIVE DIAGNOSIS Bilateral inguinal hernia REVIEW CODE CODE: I LENO Valle MD 07/05/09 33 QUERY: IS THE PATIENT FASTING? N QUERY: CARD 1=GLU, BUN, CRE, NA, K, CL, CO2, CALCIUM + GAP 34 Note: Persistent reduction for 3 months or more in an eGFR <60 mL/min/1.73 m2 defines CKD. Patients with eGFR values >/=60 mL/min/1.73 m2 may also have CKD if evidence of persistent proteinuria is present. The original MDRD equation for estimated GFR is not valid for patients less than 18 years of age. Additional information may be found at [email or web address]. 35 QUERY: IS THIS <CULTURE IF INDICATED>? N QUERY: SOURCE: 36 QUERY: IS THE PATIENT FASTING? N QUERY: CARD 1=GLU, BUN, CRE, NA, K, CL, CO2, CALCIUM + GAP Procedures Date Code Description Status 07/30/2018 65463 Measurement Post Voiding Residual Urine By Completed Ultrasound,Non-Imaging 06/26/2017 45935 Colonoscopy With Biopsy Completed 05/30/2017 17688534 Colonoscopy Completed 06/21/2016 84030 Event Monitor Inter/Review Only Completed 06/18/2016 75207 Echocardiogram Complete Completed 06/18/2016 94381 Stress Test Interpre And Report Only Completed 06/18/2016 99568 Stress Test Physician Super Only Completed 06/10/2016 65770 EKG-Tracing And Report Completed 04/14/2013 55134 EKG-Tracing And Report Completed 03/31/2013 62923 Stress Test Interpre And Report Only Completed 03/31/2013 71884 Stress Test Physician Super Only Completed 03/31/2013 27804 Stress Test Physician Super Only Completed 03/31/2013 22863 Myocardial Imaging Tomographic Multiple Study AT Rest Completed Or Stress 07/04/2009 72478 Repair Initial Inguinal Hernia/ Age 5 Or Over/Reducible Completed Encounters Type Date Location Provider Dx Diagnosis Office Visit 12/25/2018 Primary Care Rm, S81.012D Laceration without 9:30a Office TORRIE Aragon foreign body, left knee, subs encntr Z48.02 Encounter for removal of sutures Office Visit 12/23/2018 9:40a Primary Care Kandace Luna, E03.9 Hypothyroidism, Office unspecified N40.1 Benign prostatic hyperplasia with lower urinary tract symp S81.012A Laceration without foreign body, left knee, init encntr Office Visit 07/30/2018 1:15p Urology Tacos Watkins, Z12.5 Encounter for PA screening for malignant neoplasm of prostate N40.1 Benign prostatic hyperplasia with lower urinary tract symp R39.11 Hesitancy of micturition R39.12 Poor urinary stream Office Visit 06/24/2018 8:40a Primary Care Kandace Luna, Z00.00 Encntr for Office MD general adult medical exam w/o abnormal findings R94.6 Abnormal results of thyroid function studies N40.0 Benign prostatic hyperplasia without lower urinry tract symp H90.0 Conductive hearing loss, bilateral Office Visit 06/20/2017 9:40a Primary Care Kandace Luna R94.6 Abnormal results Office MD of thyroid function studies N40.0 Benign prostatic hyperplasia without lower urinry tract symp Office Visit 06/04/2017 9:00a DAHLIA Mar MD Z12.11 Encounter for screening for malignant neoplasm of colon Office Visit 04/18/2017 9:20a Primary Care Kandace Luna R94.6 Abnormal results Office MD of thyroid function studies J30.9 Allergic rhinitis, unspecified N40.0 Benign prostatic hyperplasia without lower urinry tract symp Office Visit 10/16/2016 8:40a Primary Care Kandace Luna, R06.02 Shortness of Office MD breath R94.6 Abnormal results of thyroid function studies N40.0 Benign prostatic hyperplasia without lower urinry tract symp J30.9 Allergic rhinitis, unspecified Office Visit 06/25/2016 8:40a Primary Care Kandace Luna, R94.6 Abnormal results Office MD of thyroid function studies I49.3 Ventricular premature depolarization N40.0 Benign prostatic hyperplasia without lower urinry tract symp R06.02 Shortness of breath Office Visit 06/21/2016 8:20a Cardiology Office Abby Adorno R06.02 Shortness of A., ANP breath I49.3 Ventricular premature depolarization E03.9 Hypothyroidism, unspecified Office Visit 06/10/2016 11:00a Cardiology Office Saeed Davison, R06.02 Shortness of MD breath N40.0 Benign prostatic hyperplasia without lower urinry tract symp Office Visit 04/14/2013 3:00p Cardiology Office Ruddy Mulligan 786.50 Pain Chest Unspec MD Charlene, PhD Office Visit [facility]/31[facility]2013 [facility] Carlos Moore Office Visit 03/31/2013 1:38p Cardiology Office Ruddy Mulligan 786.50 Pain Chest Saravanan hCang MD, PhD Office Visit 02/22/2010 8:30a Orthopaedic Office [place], 717.5 Derangement Gaurang Pizarro MD, Meniscus Not FACS Elsewhere Classified 719.46 Pain Joint Lower Leg Office Visit 05/29/2009 2:30p Surgical Office Dago Amadou AllenDawn, 550.92 Hernia Inguinal MD W/O Obstruct Or Gangrene Bilateral Not Recur Plan of Treatment Future Appointment(s):08/02/2019 9:00 am - Tacos Watkins PA at [id number] - Kalpana Abdalla, PAS81.012D Laceration without foreign body, left knee, subsequent encounterComments:Wound healing well.No evidence of infectionFollow up:Follow-up as ssadytB63.02 Encounter for removal of suturesComments:Removed 8 sutures without difficulty. Steri-strips applied.Keep clean and dry.Avoid additional use of Bacitracin at this time
--- OUTSIDE RECORDS SUMMARY | 2019-01-18 19:11 | XMS REPORT | Continuity of Care Document ---
:1965 External Reference #:[id number] Author Name Kandace Luna MD Address [address] [place] [address] Care Team Providers Name Role Phone Kandace Luna MD Care Team Information Lead Javascript Engineer Unavailable Kandace Luna MD Primary Care Physician Unavailable Payers Date Identification Numbers Payment Provider Subscriber Policy Number: [id number] [employer] Ashok Aguirre PayID: [id number] [address] [place] [address] Problems Active Problems Provider Date Benign prostatic [...] Use Former Drug User Smoking Status Reviewed: 12/23/18 Patient denies history of smoking Allergies, Adverse [...] Two 10/16/2016 Times A Day For 1 [id number] Day Then AT Bedt Ointment Tramadol HCL prn Unknown - 50mg Unknown Tablets Immunizations CPT Code Status Date Vaccine Lot # [id number] Given 07/20/2018 Influenza Virus Vaccine, Quadrivalent, 36 Mos+, .5ML Vital Signs Date Vital Result Comment 12/23/2018 9:44am BP Systolic Sitting Left Arm 120 mmHg BP Diastolic Sitting Left Arm 76 mmHg Body Temperature 96.6 F Heart Rate 72 /min Respiratory Rate 18 /min Height 70 inches 5'10" Weight 212.00 lb BMI (Body Mass Index) 30.4 kg/m2 BSA (Body Surface Area) 2.14 m2 [place] body weight in kilograms 75 kg O2 % BldC Oximetry 96 % Ra 07/30/2018 1:07pm BP Systolic 149 mmHg BP Diastolic 88 mmHg Body Temperature 97.5 F Heart Rate 61 /min Respiratory Rate 16 /min Height 70 inches 5'10" Weight 213.50 lb BMI (Body Mass Index) 30.6 kg/m2 BSA (Body Surface Area) 2.15 m2 [place] body weight in kilograms 75 kg O2 % BldC Oximetry 97 % Pain Level 0 06/24/2018 8:28am BP Systolic Sitting Right Arm 124 mmHg BP Diastolic Sitting Right Arm 80 mmHg Body Temperature 96.9 F Heart Rate 66 /min reg Respiratory Rate 18 /min Height 70 inches 5'10" Weight 217.00 lb BMI (Body Mass Index) 31.1 kg/m2 BSA (Body Surface Area) 2.16 m2 [place] body weight in kilograms 75 kg O2 % BldC Oximetry 97 % ra 06/20/2017 9:38am BP Systolic Sitting Right Arm 112 mmHg BP Diastolic Sitting Right Arm 67 mmHg Heart Rate 63 /min Respiratory Rate 12 /min Height 70 inches 5'10" Weight 215.00 lb BMI (Body Mass Index) 30.8 kg/m2 BSA (Body Surface Area) 2.15 m2 [place] body weight in kilograms 75 kg 06/04/2017 9:07am BP Systolic Sitting Left Arm 110 mmHg BP Diastolic Sitting Left Arm 82 mmHg Heart Rate 66 /min Respiratory Rate 16 /min Height 70 inches 5'10" Weight 218.00 lb BMI (Body Mass Index) 31.3 kg/m2 BSA (Body Surface Area) 2.17 m2 [place] body weight in kilograms 75 kg 04/18/2017 9:07am BP Systolic Sitting Right Arm 111 mmHg BP Diastolic Sitting Right Arm 72 mmHg Heart Rate 66 /min Respiratory Rate 18 /min Height 70 inches 5'10" Weight 213.00 lb BMI (Body Mass Index) 30.6 kg/m2 BSA (Body Surface Area) 2.14 m2 [place] body weight in kilograms 75 kg O2 [...] kg/m2 BSA (Body Surface Area) 2.19 m2 [place] body weight in kilograms 75 kg 06/10/2016 [...] glucose measurement measurement (mass/volume) (mass/volume) Laboratory test [facility] Thyroid Stim 7.10 uIU/mL High 0.30-4.20 1 finding 9 [address] [place] [address] [phone] Free T4 0.80 ng/dL N 0.76-1.46 Basic Metabolic Panel 12/17/2018 [facility] Glucose 95 mg/dL N 74-[address] [place], [place] [id number] [phone] BUN 18 mg/dL N 7-18 Creatinine 1.1 mg/dL N 0.6-1.3 Glom Filtration Rate, Estimate >60 mL/min >60 If >60 mL/min >60 2 BUN/Creat 16.3 ratio Sodium 141 mmol/L N 136-145 Potassium 3.9 mmol/L N 3.5-5.1 Chloride 110 mmol/L High 98-107 Carbon Dioxide 26 mmol/L N 21-32 Anion Gap 5 mEq/L Low 8-16 Calcium 8.6 mg/dL N 8.5-10.1 Laboratory test 08/17/2018 [facility] Prostate 3.04 ng/mL < 4.0 3, [address] [place] [address] Antigen [phone] Comprehensive 06/22/2018 [facility] Glucose 100 mg/dL N 74-106 5 Metabolic Panel [address] [place], [place] [id number] [phone] BUN 14 mg/dL N 7-18 Creatinine 1.3 mg/dL N 0.6-1.3 Glom Filtration Rate, Estimate >60 mL/min >60 If >60 mL/min >60 6 BUN/Creat 10.7 ratio Sodium 141 mmol/L N 136-145 Potassium 4.3 mmol/L N 3.5-5.1 Chloride 107 mmol/L N 98-107 Carbon Dioxide 29 mmol/L N 21-32 Anion Gap 5 mEq/L Low 8-16 Calcium 8.3 mg/dL Low 8.5-10.1 Total Protein 6.9 g/dL N 6.4-8.2 Albumin 3.3 g/dL Low 3.4-5.0 Globulin 3.6 g/dL N 1.9-4.3 Alb/Glob 0.9 ratio Bilirubin,Total 0.6 mg/dL N 0.2-1.0 Sgot/Ast 14 U/L Low 15-37 7 SGPT/Alt 32 U/L N 12-78 Alkaline Phosphatase 71 U/L N 45-117 CBS W/Automated Diff 06/22/2018 [facility] White Blood 5.4 K/uL N 3.4-10.[address] Count [place], [place] [id number] [phone] Red Blood Count 5.00 M/uL N 4.20-5.80 Hemoglobin 16.6 gm/dL N 12.8-17.0 Hematocrit 46.5 % N 38.0-48.0 Mean Cell Volume 93.0 fl N 80.0-96.0 Mean Corpuscular HGB 33.2 pg High 27.0-33.0 Mean Corpuscular HGB Conc 35.7 g/dL N 31.7-36.0 Platelet Count 212 K/uL N 155-360 Red Cell Distri Width SD 43.5 fl N 36-51 Red Cell Distri Width %CV 13.1 % N 11.6-15.8 Mean Platelet Volume 9.9 fL N 6.6-10.6 Neut% 62.8 % N 33.0-73.0 Lymph % 24.6 % N 20.0-42.0 [place] % 8.3 % N 0.0-10.0 Eo% 3.7 % N 0.0-6.6 Bas% 0.6 % N 0.0-1.1 Neut# 3.42 K/uL N 1.8-7.0 Lymph # 1.34 K/uL N 1.0-4.0 [place] # 0.45 K/uL N 0.0-0.8 Eos # 0.20 K/uL N 0.0-0.5 Baso # 0.03 K/uL N 0.0-0.1 Laboratory test 06/22/2018 [facility] Thyroid Stim 8.06 uIU/mL High 0.30-4.20 finding [address] [place] [address] [phone] Free T4 0.81 ng/dL N 0.76-1.46 LDL Cholesterol Profile 06/22/2018 [facility] Cholesterol 192 mg/dL <200 8 [address] [place] [address] [phone] Triglycerides 145 mg/dL <150 9 HDL Cholesterol 56 mg/dL >40 10 LDL-Cholesterol 107 mg/dL < 100 11 230 Ua Routine 08/07/2017 N2N/CCD Import Ua Bilirubin Negative Ua Blood Negative Ua Clarity Clear Ua Color Yellow Ua Glucose Negative Ua Ketones Negative Ua Leuko Negative Ua Nitrite Negative Ua PH 5.0 1 5.0-7.5 Ua Protein Negative Ua Specific [place] 1.010 1 1.003-1.030 Ua Urobilinogen 0.2 E.U./dL 0.0-1.0 Laboratory test 07/24/2017 N2N/CCD Import Total Psa Only 1.52 ng/mL 0.00 -4.00 finding Laboratory test 06/03/2017 [facility] Thyroid Stim 6.54 uIU/mL High 0.30-4.20 12 finding [address] [place] [address] [phone] Free T4 0.96 ng/dL N 0.76-1.46 Thyroid 06/03/2017 [facility] Thyroglobulin < 1.0 0.0-0.[address] Antibody IU/[place] [address] [phone] Thyroid Peroxidase Antibodies 10 IU/mL 0-34 14 CBS W/Automated Diff 06/03/2017 [facility] White Blood 6.1 K/uL N 3.4-10.[address] [place] [address] [phone] Red Blood Count 4.93 M/uL N 4.20-5.80 Hemoglobin 16.1 gm/dL N 12.8-17.0 Hematocrit 45.3 % N 38.0-48.0 Mean Cell Volume 91.9 fl N 80.0-96.0 Mean Corpuscular HGB 32.7 pg N 27.0-33.0 Mean Corpuscular HGB Conc 35.5 g/dL N 31.7-36.0 Platelet Count 203 K/uL N 150-400 Red Cell Distri Width SD 43.5 fl N 36-51 Red Cell Distri Width %CV 13.1 % N 11.6-15.8 Mean Platelet Volume 10.3 fL N 6.6-10.6 Neut% 63.4 % N 33.0-73.0 Lymph % 19.6 % Low 20.0-42.0 [place] % 11.7 % High 0.0-10.0 Eo% 4.8 % N 0.0-6.6 Bas% 0.5 % N 0.0-1.1 Neut# 3.84 K/uL N 1.8-7.0 Lymph # 1.19 K/uL N 1.0-4.0 [place] # 0.71 K/uL N 0.0-0.8 Eos # 0.29 K/uL N 0.0-0.5 Baso # 0.03 K/uL N 0.0-0.1 Comprehensive Metabolic 06/03/2017 [facility] Glucose 102 mg/dL N 74-[address] [place] [address] [phone] BUN 14 mg/dL N 7-18 Creatinine 1.2 mg/dL N 0.6-1.3 Glom Filtration Rate, Estimate >60 mL/min >60 If >60 mL/min >60 15 BUN/Creat 11.6 ratio Sodium 141 mmol/L N 136-145 Potassium 4.2 mmol/L N 3.5-5.1 Chloride 108 mmol/L High 98-107 Carbon Dioxide 27 mmol/L N 21-32 Anion Gap 6 mEq/L Low 8-16 Calcium 8.4 mg/dL Low 8.5-10.1 Total Protein 7.0 g/dL N 6.4-8.2 Albumin 3.3 g/dL Low 3.4-5.0 Globulin 3.7 g/dL N 1.9-4.3 Alb/Glob 0.9 ratio Bilirubin,Total 0.6 mg/dL N 0.2-1.0 Sgot/Ast 29 U/L N 15-37 SGPT/Alt 48 U/L N 12-78 Alkaline Phosphatase 82 U/L N 45-117 LDL Cholesterol Profile 06/03/2017 [facility] Cholesterol 190 mg/dL <[address] [place], [place] [address] [phone] Triglycerides 97 mg/dL <150 17 HDL Cholesterol 62 mg/dL >40 18 LDL-Cholesterol 109 mg/dL < 100 19 Laboratory test 04/11/2017 [facility] Thyroid Stim 4.82 High 0.30-4.20 [address] Hormone uIU/[place] [address] [phone] Free T4 0.98 ng/dL N 0.76-1.46 Hepatitis C 10/16/2016 [facility] Hepatitis C Nonreactive Nonreactive [address] Antibody [place], [place] [id number] [phone] Signal/Cutoff ratio < 0.02 <0.80 22 Laboratory test 10/16/2016 [facility] Thyroid Stim 4.39 uIU/mL High 0.30-4.[address] Hormone [place], [place] [address] [phone] Free T4 0.90 ng/dL N 0.76-1.46 HIV Screen 4TH Gen Reflex Non Reactive Non Reactive 23 Laboratory test 06/25/2016 [facility] Thyroid Stim 6.73 High 0.30-4.20 [address] Hormone uIU/mL [place], [place] [address] [phone] Free T4 0.96 ng/dL N 0.76-1.46 Comprehensive Metabolic 06/11/2016 [facility] Glucose 96 mg/dL N 74-106 25 Panel [address] [place] [address] [phone] BUN 14 mg/dL N 7-18 Creatinine 1.2 mg/dL N 0.6-1.3 Glom Filtration Rate, Estimate >60 mL/min N >60 If >60 mL/min N >60 26 BUN/Creat 11.6 ratio N Sodium 141 mmol/L N 136-145 Potassium 4.0 mmol/L N 3.5-5.1 Chloride 108 mmol/L High 98-107 Carbon Dioxide 27 mmol/L N 21-32 Anion Gap 6 mEq/L Low 8-16 Calcium 8.1 mg/dL Low 8.5-10.1 Total Protein 6.5 g/dL N 6.4-8.2 Albumin 3.3 g/dL Low 3.4-5.0 Globulin 3.2 g/dL N 1.9-4.3 Alb/Glob 1.0 ratio N Bilirubin,Total 0.6 mg/dL N 0.2-1.0 Sgot/Ast 19 U/L N 15-37 SGPT/Alt 30 U/L N 12-78 Alkaline Phosphatase 61 U/L N 45-117 LDL Cholesterol Profile 06/11/2016 [facility] Cholesterol 195 mg/dL N <200 27 [address] [place] [address] [phone] Triglycerides 139 mg/dL N <150 28 HDL Cholesterol 53 mg/dL N >40 29 LDL-Cholesterol 114 mg/dL N < 100 30 Laboratory test finding 06/11/2016 [facility] Magnesium 1.9 mg/dL N 1.8-2.4 [address] [place] [address] [phone] Thyroid Stim Hormone 7.73 uIU/mL High 0.30-4.20 NT-proBNP 109.0 pg/mL N <125 Prostate Specific Antigen 1.22 ng/mL N < 4.0 31 CBS W/Automated Diff 06/11/2016 [facility] White Blood 5.1 K/uL N 3.4-10.[address] Count [place], [place] [id number] [phone] Red Blood Count 4.95 M/uL N 4.20-5.80 Hemoglobin 16.1 gm/dL N 12.8-17.0 Hematocrit 45.9 % N 38.0-48.0 Mean Cell Volume 92.7 fl N 80.0-96.0 Mean Corpuscular HGB 32.5 pg N 27.0-33.0 Mean Corpuscular HGB Conc 35.1 g/dL N 31.7-36.0 Platelet Count 202 K/uL N 150-400 Red Cell Distri Width SD 43.8 fl N 36-51 Red Cell Distri Width %CV 13.1 % N 11.6-15.8 Mean Platelet Volume 10.6 fL N 6.6-10.6 Neut% 52.7 % N 33.0-73.0 Lymph % 31.0 % N 17.0-56.0 [place] % 11.7 % High 0.0-10.0 Eo% 3.6 % N 0.0-5.0 Bas% 1.0 % N 0.1-1.0 Neut# 2.67 K/uL N 1.8-7.0 Lymph # 1.57 K/uL Low 1.8-7.0 [place] # 0.59 K/uL N 0.0-0.8 Eos # 0.18 K/uL N 0.0-0.5 Baso # 0.05 K/uL Low 0.1-0.2 Laboratory test finding 07/04/2009 [facility] Lipoma See Note 32 [address] [place], [place] [address] [phone] Basic Metabolic Panel 06/28/2009 [facility] Glucose 89 mg/dL 76-115 33 [address] [place] [address] [phone] BUN 14 mg/dL 5-23 Estimated GFR Panel Creatinine 1.2 mg/dL 0.5-1.4 Glom Filtration Rate, Estimate >60 mL/min >60 If >60 mL/min >60 34 BUN/Creat 11.6 Sodium 135 mEq/L Low 136-145 Potassium 3.9 mEq/L 3.5-5.1 Chloride 100 mEq/L 98-107 Carbon Dioxide 28 mEq/L 21-32 Anion Gap 11 mEq/L 8-16 Calcium 8.4 mg/dL Low 8.5-10.1 CBC 06/28/2009 [facility] White Blood Count 5.4 K/uL 3.4-10.5 [address] [place] [address] [phone] Red Blood Count 5.02 M/uL 4.20-5.80 Hemoglobin 16.2 gm/dL 12.8-17.0 Hematocrit 45.4 % 38.0-48.0 Mean Cell Volume 90.4 fl 80.0-96.0 Mean Corpuscular HGB 32.3 pg 27.0-33.0 Mean Corpuscular HGB Conc 35.7 g/dL 31.7-36.0 Platelet Count 241 K/uL 150-400 Red Cell Distri Width %CV 12.7 % 11.6-15.8 Mean Platelet Volume 9.8 fL 6.6-10.6 35 Urine Screen 06/28/2009 [facility] Urine Color YELLOW Yellow [address] [place] [address] [phone] Urine Clarity CLEAR Clear Urine Glucose - Dipstick NEGATIVE mg/dL Negative Urine Bilirubin - Dipstick NEGATIVE Negative Urine Ketone NEGATIVE mg/dL Negative Urine Specific [place] 1.020 1.010-1.030 Urine Blood NEGATIVE Negative Urine [...] methods cannot be used interchangeably. Method: Siem[employer] [place] Chemiluminescent immunoassay. 5 R94.6,N40.0,E03.9 6 Note: Persistent [...] E03.9,E66.09 13 Thyroglobulin Antibody measured by Iveth Juanito Methodology 14 Performed at: - [facility] [id number] Radio Station Operator: Lashonda Yi MD, Phone: [phone] Note: Persistent reduction for 3 months [...] early acute HCV infection. 23 Performed at: RN - [facility] [address] [id number] Radio Station Operator: Lashonda Yi MD, Phone: [phone] E03.9 25 R06.2,N40.0 26 Note: Persistent [...] assay methods cannot be used interchangeably. Method: [employer] [place] Chemiluminescent immunoassay. 32 OPERATION/PROCEDURE Repair bilateral inguinal hernia DIAGNOSIS: PARTS 1,2: "RIGHT & LEFT CORD LIPOMAS": MATURE ADIPOSE TISSUE. IRVING/brian 1142 GROSS Part 1; Received in formalin additionally labeled "RIGHT CORD LIPOMA" is a 4.0 x 2.0 x 1.3 cm. piece of soft tissue. On cut surface there appears to be mature adipose tissue without evidence of hemorrhage nor necrosis. Meter Inspector sections are submitted in block one. Part 2; Received in formalin additionally labeled "LEFT CORD LIPOMA" are two pieces of wong yellow soft tissue measuring 3.0 x 0.7 x 0.7 and 2.8 x 1.5 x 1.0 cm. On cut surface there appears to be mature adipose tissue without evidence of hemorrhage nor necrosis. Meter Inspector sections are submitted in block two. IRVING/brian MICROSCOPIC Parts 1,2: Sections reveal mature adipose [...] GAP Procedures Date Code Description Status 07/30/2018 29158 Measurement Post Voiding Residual Urine By Completed Ultrasound,Non-Imaging 06/26/2017 86227 Colonoscopy With Biopsy Completed 05/30/2017 89954829 Colonoscopy Completed 06/21/2016 19172 Event Monitor Inter/Review Only Completed 06/18/2016 85309 Echocardiogram Complete Completed 06/18/2016 96485 Stress Test Interpre And Report Only Completed 06/18/2016 13236 Stress Test Physician Super Only Completed 06/10/2016 76030 EKG-Tracing And Report Completed 04/14/2013 15383 EKG-Tracing And Report Completed 03/31/2013 90397 Stress Test Interpre And Report Only Completed 03/31/2013 93950 Stress Test Physician Super Only Completed 03/31/2013 45603 Stress Test Physician Super Only Completed 03/31/2013 11100 Myocardial Imaging Tomographic Multiple Study AT Rest Completed Or Stress 07/04/2009 51472 Repair Initial Inguinal Hernia/ Age 5 Or Over/Reducible Completed Encounters Type Date Location Provider Dx Diagnosis Office Visit 07/30/2018 Urology Tacos Watkins, Z12.5 Encounter for 1:15p PA screening for malignant neoplasm of prostate N40.1 Benign prostatic hyperplasia with lower urinary tract symp R39.11 Hesitancy of micturition R39.12 Poor urinary stream Office Visit 06/24/2018 8:40a Primary Care Kandace Luna, Z00.00 Encntr for Office general adult medical exam w/o abnormal findings R94.6 Abnormal results of thyroid function studies N40.0 Benign prostatic hyperplasia without lower urinry tract symp H90.0 Conductive hearing loss, bilateral Office Visit 06/20/2017 9:40a Primary Care Kandace Luna R94.6 Abnormal results Office of thyroid function studies N40.0 Benign prostatic [...] Office Ruddy Mulligan 786.50 Pain Chest Saravanan Chang MD, PhD Office Visit 03/31/2013 2:16p [facility], 786.50 Pain Chest [facility] Carlos Moore Office Visit 03/31/2013 1:38p Cardiology Office Ruddy Mulligan 786.50 Pain Chest Saravanan Chang MD, PhD Office Visit 02/22/2010 8:30a Orthopaedic Office [place], 717.5 Derangement Gaurang Pizarro MD, Meniscus Not FACS Elsewhere Classified 719.46 Pain Joint Lower Leg Office Visit 05/29/2009 2:30p Surgical Office Amadou Loza, 550.92 Hernia Inguinal W/O Obstruct Or Gangrene Bilateral Not Recur Plan of Treatment Future Appointment(s):12/25/2018 9:30 am - Kalpana Abdalla PA at [facility]/02/2019 9:00 am - Tacos Watkins PA at [email or web address]/23/2018 - Kandace Luna MDE03.9 Hypothyroidism, unspecifiedNew Medication:Levothyroxine Sodium 25 mcg - 1 by mouth every dayNew Labs:Thyroid Stim Hormone, Scheduled: Free T4, Scheduled: 02/22/19Comments:-TSH elevated, T4 normal-Was Asymptomatic before so felt it was subclinical hypothyroidism but does have some fatigue mild constipation and hair thinning -Try levothyroxine 25mcg once daily -recheck labs in 8 trymuB96.1 Benign prostatic hyperplasia with lower urinary tract symptoComments:PSA monitored by urology and has been stable-Off flomax due to SOB with medication -?dutasteride on med list but not taking doesn 't look like sent in and discussed with Urology does not need to take, removed from list-F/u with TwyxeqlJ09.012A Laceration without foreign body, left knee, initial encounteComments:-had 4cm laceration from chainsaw-sutures placed and still draining and healing-removal on Friday -Neosporin causing itching-try bacitracin insteadAllFollow up:8 weeks TSH, free t4 check Put on schedule Friday with Bushra for suture removal [place] [address] Syed
[2019-01-18 19:26] VITALS: BP 120/69
--- NOTE | 2019-01-18 19:28 | UC ---
Skin Complaint HPI - HPI Summary HPI Summary: Patient was working with trees over a week ago he started developing some poison cody on his arms and chest and is continued to spread. - History of Current Complaint Chief Complaint: UCRash Time Seen by Provider: 01/18/19 19:19 Stated Complaint: SKIN CONCERN Hx Obtained From: Patient Onset/Duration: Gradual Onset Skin Exposure Onset/Duration: Days Ago Timing: Constant Onset Severity: Mild Current Severity: Mild Pain Intensity: 0 Location: Hand (Right), Hand (Left), Other - Chest, both forearms Character: Pruritus, Redness Aggravating Factor(s): Nothing Alleviating Factor(s): Nothing Associated Signs & Symptoms: Positive: Negative - Allergy/Home Medications Allergies/Adverse Reactions: Allergies Allergy/AdvReac Type Severity Reaction Status Date / Time antibiotic eye drop Allergy Swelling Uncoded 01/18/19 19:16 Home Medications: Home Medications Thyroid Med 1 tab PO QAM 01/18/19 [History] Triamcinolone Cream 1 applic TOPICAL BID PRN 01/18/19 [History] PMH/Surg Hx/FS Hx/Imm Hx Previously Healthy: Yes - Surgical History Surgical History: Yes Surgery Procedure, Year, and Place: cardiac cath 03/2012 wnl per pt, b/l knees ; b/l inguinal hernia - Family History Known Family History: Negative: Cardiac Disease, Hypertension, Diabetes - Social History Alcohol Use: None Alcohol Amount: quit 5 years ago Substance Use Type: None Smoking Status (MU): Never Smoked Tobacco Type: Cigarettes Household Exposure Type: Cigarettes - Immunization History Most Recent Influenza Vaccination: no Most Recent Tetanus Shot: 01/24/19 Vaccination Up to Date: Yes Review of Systems All Other Systems Reviewed And Are Negative: Yes Skin: Positive: Rash - Rash has been gradually spreading to chest and forearms. Is Patient Immunocompromised?: No Physical Exam Triage Information Reviewed: Yes Appearance: Well-Appearing, No Pain Distress, Well-Nourished Vital Signs: Initial Vital Signs Temp 98 F 01/18/19 19:21 Pulse 66 01/18/19 19:21 Resp 16 01/18/19 19:21 BP 120/69 01/18/19 19:21 Pulse Ox 99 01/18/19 19:21 Vital Signs Reviewed: Yes Respiratory: Positive: Lungs clear, Normal breath sounds, No respiratory distress, No accessory muscle use Cardiovascular: Positive: RRR, No Murmur, Pulses Normal, Brisk Capillary Refill Skin: Positive: Rashes - Patient has several areas of contact dermatitis on his forearms, hand, chest. No secondary skin infection. Course/Dx - Course Course Of Treatment: I'm treating the patient with a Medrol Dosepak any's follow-up with his primary care provider as needed. - Diagnoses Provider Diagnosis: Contact dermatitis Discharge - Sign-Out/Discharge Documenting (check all that apply): Patient Departure All imaging exams completed and their final reports reviewed: No Studies - Discharge Plan Condition: Fair Disposition: HOME Prescriptions: methylPREDNISolone [Medrol] 4 mg PO DAILY #1 tab.ds.pk Patient Education Materials: Contact Dermatitis (DC) Referrals: Kandace Luna MD [Primary Care Provider] - Additional Instructions: Avoid scratching the area. Follow-up with your primary care provider if no improvement in 3 or 4 days. - Billing Disposition and Condition Condition: FAIR Disposition: Home
== END 2019-01-18 19:36 | disposition home or self-care (01) ==
LOC: UCCORT 18:20
DX: L25.9 Unspecified contact dermatitis, unspecified cause (principal)
CPT/HCPCS: 99212; G0463

== ENCOUNTER 2019-04-30 07:27 | Emergency (ER) | payer OTHER ==
[2019-04-30 07:40] VITALS: BP 122/69
--- NOTE | 2019-04-30 07:53 | ED ---
Skin Complaint - HPI Summary HPI Summary: 53 yr old male with the complaint of rash to right side of neck and upper right chest. The patient cuts trees for a living. He was cutting down a tree with poison niru royce earlier in the week. He has the rash that is itching and blistering now. No other complaints. Symptoms are moderate. - History of Current Complaint Chief Complaint: UCSkin Time Seen by Provider: 04/30/19 07:48 Stated Complaint: POISON NIRU Pain Intensity: 0 - Allergy/Home Medications Allergies/Adverse Reactions: Allergies Allergy/AdvReac Type Severity Reaction Status Date / Time antibiotic eye drop Allergy Swelling Uncoded 04/30/19 07:40 PMH/Surg Hx/FS Hx/Imm Hx Endocrine/Hematology History: Reports: Hx Thyroid Disease Denies: Hx Diabetes Cardiovascular History: Denies: Hx Hypertension Respiratory History: Denies: Hx Asthma, Hx Chronic Obstructive Pulmonary Disease (COPD) GI History: Denies: Hx Ulcer - Surgical History Surgery Procedure, Year, and Place: cardiac cath 03/2012 wnl per pt, b/l knees ; b/l inguinal hernia Infectious Disease History: No Infectious Disease History: Denies: Hx Clostridium Difficile, Hx Hepatitis, Hx Human Immunodeficiency Virus (HIV), Hx of Known/Suspected MRSA, Hx Shingles, Hx Tuberculosis, Hx Known/ Suspected VRE, Hx Known/Suspected VRSA, History Other Infectious Disease, Traveled Outside the [place] in Last 30 Days - Family History Known Family History: Negative: Cardiac Disease, Hypertension, Diabetes - Social History Alcohol Use: None Alcohol Amount: quit 5 years ago Substance Use Type: Reports: None Smoking Status (MU): Never Smoked Tobacco Type: Cigarettes Review of Systems Constitutional: Negative Positive: Rash All Other Systems Reviewed And Are Negative: Yes Physical Exam Triage Information Reviewed: Yes Vital Signs On Initial Exam: Initial Vitals Temp Pulse Resp BP Pulse Ox 97.6 F 60 18 122/69 97 04/30/19 07:35 04/30/19 07:35 04/30/19 07:35 04/30/19 07:35 04/30/19 07:35 Vital Signs Reviewed: Yes Appearance: Positive: Well-Appearing, No Pain Distress Skin: Positive: Other - rash to the right side of the neck and the upper right chest, linear array of blisters wheeping. Head/Face: Positive: Normal Head/Face Inspection Eyes: Positive: EOMI ENT: Positive: Normal ENT inspection Neck: Positive: Nontender Respiratory/Lung Sounds: Negative: Stridor Cardiovascular: Positive: Pulses are Symmetrical in both Upper and Lower Extremities Abdomen Description: Negative: Distended Musculoskeletal: Positive: Strength/ROM Intact Neurological: Positive: Sensory/Motor Intact, Alert, Oriented to Person Place, Time, CN Intact II-III, Speech Normal Diagnostics - Vital Signs Vital Signs Temp Pulse Resp BP Pulse Ox 04/30/19 07:35 97.6 F 60 18 122/69 97 - Laboratory Lab Statement: Any lab studies that have been ordered have been reviewed, and results considered in the medical decision making process. Course/Dx - Course Course Of Treatment: 53 yr old with poison niru rash. Rx medrol dose nato. - Diagnoses Provider Diagnoses: Poison niru Discharge ED - Sign-Out/Discharge Documenting (check all that apply): Patient Departure, Post-Discharge Follow Up All imaging exams completed and their final reports reviewed: No Studies - Discharge Plan Condition: Good Disposition: HOME Prescriptions: methylPREDNISolone [Medrol] 4 mg PO .PER NATO #1 tab.ds.pk Patient Education Materials: Poison Niru (ED) Referrals: Kandace Luna MD [Primary Care Provider] - - Billing Disposition and Condition Condition: GOOD Disposition: Home
== END 2019-04-30 07:52 | disposition home or self-care (01) ==
LOC: UCCORT 07:27
DX: L23.7 Allergic contact dermatitis due to plants, except food (principal); Z88.1 Allergy status to other antibiotic agents
CPT/HCPCS: 99212; G0463

== ENCOUNTER 2019-05-10 07:12 | Emergency (ER) | payer OTHER ==
[2019-05-10 07:23] VITALS: BP 124/72
--- NOTE | 2019-05-10 07:39 | UC ---
Skin Complaint HPI - HPI Summary HPI Summary: 54-year-old male comes in with chief complaint of a rash. This started about 2 weeks ago. Is initially on the right side of his neck. On April 30, 2019 he started a Medrol Dosepak and also topical triamcinolone. When he was on the Medrol Dosepak the rash went away completely. However couple days after finishing the Medrol Dosepak similar rash reappeared on the left thumb right chest and left buttock and suprapubic area. Been using topical triamcinolone which does help however the rash is not going away. He did take down a tree that had poison gayatri on it 2 weeks ago. No fevers no chills feels well otherwise. - History of Current Complaint Chief Complaint: UCRash Time Seen by Provider: 05/10/19 07:29 Stated Complaint: SKIN CONCERN Pain Intensity: 0 - Allergy/Home Medications Allergies/Adverse Reactions: Allergies Allergy/AdvReac Type Severity Reaction Status Date / Time antibiotic eye drop Allergy Swelling Uncoded 05/10/19 07:19 Home Medications: Home Medications Levothyroxine TAB* [Synthroid TAB*] 25 mcg PO DAILY 05/10/19 [History Confirmed 05/10/19] PMH/Surg Hx/FS Hx/Imm Hx Previously Healthy: Yes Endocrine History: Hypothyroidism - Surgical History Surgical History: Yes Surgery Procedure, Year, and Place: cardiac cath 03/2012 wnl per pt, b/l knees ; b/l inguinal hernia - Family History Known Family History: Negative: Cardiac Disease, Hypertension, Diabetes - Social History Alcohol Use: None Alcohol Amount: quit 5 years ago Substance Use Type: None Smoking Status (MU): Never Smoked Tobacco Type: Cigarettes Household Exposure Type: Cigarettes - Immunization History Most Recent Influenza Vaccination: no Most Recent Tetanus Shot: 01/24/19 Vaccination Up to Date: Yes Review of Systems All Other Systems Reviewed And Are Negative: Yes Constitutional: Positive: Negative Skin: Positive: Other - SEE HPI ENT: Positive: Negative Respiratory: Positive: Negative Cardiovascular: Positive: Negative Gastrointestinal: Positive: Negative Motor: Positive: Negative Neurovascular: Positive: Negative Musculoskeletal: Positive: Negative Neurological: Positive: Negative Psychological: Positive: Negative Is Patient Immunocompromised?: No Physical Exam Triage Information Reviewed: Yes Appearance: Well-Appearing, No Pain Distress Vital Signs: Initial Vital Signs Temp 97.3 F 05/10/19 07:17 Pulse 72 05/10/19 07:17 Resp 16 05/10/19 07:17 BP 124/72 05/10/19 07:17 Pulse Ox 99 05/10/19 07:17 Vital Signs Reviewed: Yes Eye Exam: Normal Eyes: Positive: Conjunctiva Clear Neck: Positive: Supple Respiratory: Positive: No respiratory distress Musculoskeletal: Positive: Strength Intact, ROM Intact Neurological: Positive: Alert, Muscle Tone Normal Psychological: Positive: Age Appropriate Behavior Skin: Positive: Other - Patient has scattered areas of erythema that's slightly raised. The smallest is 1 cm in diameter the largest is 5 cm diameter. There are patches on the left thumb right chest and left lower back and buttock. No vesicles. No drainage. Course/Dx - Course Course Of Treatment: The rash and history are consistent with poison gayatri dermatitis. We will treat with a Medrol Dosepak beginning use triamcinolone as needed follow-up with primary care doctor get reevaluated sooner if worse or any questions or concerns. - Diagnoses Provider Diagnosis: Poison gayatri dermatitis Discharge ED - Sign-Out/Discharge Documenting (check all that apply): Patient Departure All imaging exams completed and their final reports reviewed: Yes - Discharge Plan Condition: Stable Disposition: HOME Prescriptions: methylPREDNISolone [Medrol Dosepak 4 MG*] 0 mg PO .SEE NATO INSTRUCTION #1 nato Triamcinolone 0.1% OINT(NF) [Kenolog 0.1% OINT(NF)] 1 applic TOPICAL TID #15 mg Patient Education Materials: Poison Gayatri (ED) Referrals: Kandace Luna MD [Primary Care Provider] - Additional Instructions: FOLLOW UP WITH YOUR DOCTOR IF NOT COMPLETELY IMPROVED. GET REEVALUATED IF NOT IMPROVING OR WORSE OR ANY QUESTIONS OR CONCERNS. - Billing Disposition and Condition Condition: STABLE Disposition: Home
== END 2019-05-10 07:47 | disposition home or self-care (01) ==
LOC: UCCORT 07:12
DX: L23.7 Allergic contact dermatitis due to plants, except food (principal); E03.9 Hypothyroidism, unspecified
CPT/HCPCS: 99212; G0463